=== PATIENT | male | born 1955 | race Caucasian/White ===

== ENCOUNTER 2025-06-17 04:16 | Emergency (ER) | payer OTHER ==
[2025-06-17 04:38] LABS: #Basophils Less than 0.03 10x3/uL (0.0-0.2); #Eosinophils 0.08 10x3/uL (0.0-0.7); #Monocytes 0.80 10x3/uL (0.11-0.59); #Neutrophils 2.52 10x3/uL (1.40-6.50); %Basophils 0.2 % (0.0-1.0); %Eosinophils 1.9 % (0.0-10.0); %Lymphocytes 20.6 % (21.0-51.0); %Monocytes 18.6 % (0.0-10.0); %Neutrophils 58.5 % (42.0-75.0); Hematocrit 34.6 % (42.0-52.0); Hemoglobin 11.3 g/dL (14.0-18.0); Mean Corpuscular Hemoglobin 30.6 pg (27.0-31.0); Mean Corpuscular Volume 93.8 fL (78.0-98.0); Platelet Count 167 10x3/uL (130-400); Red Blood Cell (RBC) Count 3.69 mill/uL (4.70-6.10); White Blood Cell (WBC) Count 4.31 10x3/uL (4.8-10.8)
[2025-06-17 04:50] LABS: Lipase 34 U/L (8-78); Magnesium 2.1 mg/dL (1.6-2.6)
[2025-06-17 04:51] LABS: Acetaminophen Less than 10 mcg/mL (Less than 10); Salicylate Less than 8.0 mg/dL (Less than 8.0)
[2025-06-17 04:52] LABS: ALT (SGPT) 13 U/L (Less than 45); AST (SGOT) 23 U/L (11-34); Albumin 3.2 g/dL (3.1-4.5); Alkaline Phosphatase 54 U/L (40-110); Anion Gap 13 mmol/L (10-20); BUN (Urea Nitrogen) 16 mg/dL (8.4-25.7); Bilirubin, Total 0.2 mg/dL (0.3-1.2); CK (CPK) 119 U/L (30-200); Calc. Creatinine Clearance 0 mL/min (70-130); Calcium 7.6 mg/dL (7.8-10.44); Carbon Dioxide 19 mmol/L (23-31); Chloride 109 mmol/L (98-107); Globulin 2.9 g/dL (2.4-3.5); Glucose 108 mg/dL (80-115); Potassium 3.6 mmol/L (3.5-5.1); Sodium 137 mmol/L (136-145)
== END 2025-06-17 09:35 ==
LOC: EEVIPCON 04:16 → ERS 04:16
DX: R56.9 Unspecified convulsions (principal)
CPT/HCPCS: 36416; 70450; 72125; 80053; 80307; 82550; 83690; 83735; 84484; 85025; 93005; 96360; 96361